=== PATIENT | female | born 1980 | race Caucasian/White ===

== ENCOUNTER 2017-08-16 08:33 | Emergency (ER) | payer MEDICAID ==
[2017-08-16 09:34] LABS: URINE BLOOD (Dip) POC Trace-intact (NEGATIVE); URINE GLUCOSE (Dip) POC Negative (NEGATIVE); URINE KETONES (Dip) POC Negative (NEGATIVE); URINE LEUKOCYTE EST (Dip) POC Negative (NEGATIVE); URINE NITRITE (Dip) POC Negative (NEGATIVE); URINE TOTAL PROTEIN POC Negative (NEGATIVE)
[2017-08-16 09:34] LABS: URINE PH (Dip) POC 6.5 (5.0-8.5)
== END 2017-08-16 10:20 | disposition home or self-care (01) ==
LOC: FTE 08:33
DX: N64.4 Mastodynia (principal)
CPT/HCPCS: 81003; 99283